=== PATIENT | female | born 1980 | race Caucasian/White ===

== ENCOUNTER 2019-09-29 05:45 | Inpatient (IN) ==
[2019-09-29] MEDS ORDERED: LACTATED RINGER'S 1,000 ML IV PRN (08:05)
[2019-09-29] MEDS ORDERED: PENICILLIN G POTASSIUM 6 MU in DEXTROSE 5% 250 ML IV STA (08:05)
--- NOTE | 2019-09-29 08:09 | Obstetrical Progress Note ---
Date of Service September 29, 2019 Subjective Admit Note 39 F P1011 at 36.2 weeks admitted in active labor. Cervix now 6/80/- 1/vertex/intact/soft/vertex. FHT Cat 1. GBS is positive. Will start antibiotics. Patient plans unmedicated . Results & Data Vital Signs (Past 12 Hours) Vital Signs Temp Pulse Resp BP 09/29/19 07:11 37.1 C 20 09/29/19 07:10 73 107/70 09/29/19 06:06 36.9 C 92 H 20 109/79 09/29/19 06:03 92 H 109/79 09/29/19 06:02 36.9 C 20
[2019-09-29 08:38] LABS: Hematocrit (blood only) 34.5 % (37-47); Mean Corpuscular Hemoglobin 27.8 pg (25-34); Mean Corpuscular Volume 87.1 fL (80-100); Mean Platelet Volume 11.4 fL (7.4-10.4); Platelet Count 161 K/uL (130-400); RDW Coefficient of Variation 15.4 % (11.5-14.5); RDW Standard Deviation 49.4 fL (36.4-46.3); Red Blood Count 3.96 M/uL (4.2-5.4); White Blood Count 10.59 K/uL (4.8-10.8)
[2019-09-29 08:53] LABS: Mean Corpuscular Hgb Conc 31.9 g/dL (32-36)
[2019-09-29] MEDS: PENICILLIN G POTASSIUM 3 MU in DEXTROSE 5% 100 ML IV PRN ×2 (12:35→16:18)
--- NOTE | 2019-09-29 14:59 | Obstetrical Progress Note ---
Date of Service September 29, 2019 Physical Exam Genitourinary: Manual OB Exam: + cervical dilation 6 cm and 7 cm, + cervical effacement 80%, + station -1 and + amniotic fluid clear OB Exam Monitor Tracing: + external FHT monitor used, + external uterine monitor used and + category I AROM with amni-hook clear fluid Results & Data Vital Signs (Past 12 Hours) Vital Signs Temp Pulse Resp BP 09/29/19 11:31 37.0 C 16 09/29/19 10:06 84 16 109/73 09/29/19 07:11 37.1 C 20 09/29/19 07:10 73 107/70 09/29/19 06:06 36.9 C 92 H 20 109/79 09/29/19 06:03 92 H 109/79 09/29/19 06:02 36.9 C 20
[2019-09-29] MEDS: OXYTOCIN 30 UNITS/500 ML BAG IV PRN ×2 (19:09→20:25)
--- NOTE | 2019-09-29 19:22 | Delivery Summary ---
Vaginal Delivery Summary Date of Service September 29, 2019 Vaginal Delivery Summary Delivery Note live female over intact perineum SAURABH with delayed cord clamping and Apgars of 8/9 weight pending. Cord blood obtained and placenta delivered spontaneously and intact. No tears. Final sponge and instrument count are correct. EBL 100 ml. Mom and baby stable.
[2019-09-29] MEDS ORDERED: ONDANSETRON 4 MG TAB PO PRN (19:25)
[2019-09-29] MEDS ORDERED: OXYTOCIN 30 UNITS/500 ML BAG IV PRN (19:25)
[2019-09-29] MEDS ORDERED: ACETAMINOPHEN 325 MG TAB PO PRN (19:25)
[2019-09-29] MEDS ORDERED: SUPERCREAM 0.870% 15 GM JAR EXT PRN (19:25)
[2019-09-29] MEDS ORDERED: DIPHTHERIA/TETANUS/PERTUSSIS 0.5 ML SYR/VIAL IM ONE (19:25)
[2019-09-29] MEDS ORDERED: BENZOCAINE 20% AER SPR 82.5 GM CAN EXT PRN (19:25)
[2019-09-29] MEDS ORDERED: HYDROCORTISONE ACETATE 25 MG SUPP PR PRN (19:25)
[2019-09-29] MEDS ORDERED: IBUPROFEN 600 MG TAB PO ONE (19:30)
[2019-09-29] MEDS: DOCUSATE SODIUM 100 MG CAP PO SCH (20:59)
[2019-09-29] MEDS ORDERED: NON-FORMULARY MEDICATION (Pnv Cmb#95-Ferrous Fumarate-Fa [Prenatal] 1 TAB) PO SCH (21:00)
[2019-09-30] MEDS: IBUPROFEN 600 MG TAB PO PRN ×3 (05:52→20:11)
[2019-09-30 07:11] LABS: Hematocrit (blood only) 29.2 % (37-47); Hemoglobin 9.4 g/dL (12.0-16.0); Mean Corpuscular Hemoglobin 27.8 pg (25-34); Mean Corpuscular Hgb Conc 32.2 g/dL (32-36); Mean Corpuscular Volume 86.4 fL (80-100); Mean Platelet Volume 11.2 fL (7.4-10.4); Platelet Count 168 K/uL (130-400); RDW Coefficient of Variation 15.7 % (11.5-14.5); RDW Standard Deviation 48.7 fL (36.4-46.3); Red Blood Count 3.38 M/uL (4.2-5.4); White Blood Count 12.43 K/uL (4.8-10.8)
--- NOTE | 2019-09-30 08:14 | Obstetrical Progress Note ---
Date of Service September 30, 2019 Subjective Patient is seen and examined. She feels well, no complaints. Ambulating without dizziness Voiding without difficulty Tolerating regular diet with out N&V Bleeding is minimal No fever/ chills/ CP/ SOB/ N&V/ Leg pain Breast feeding without problems Vital Signs Temp Pulse Pulse Resp BP BP Pulse Ox 09/30/19 08:00 36.7 C 77 18 107/72 99 09/30/19 03:35 36.7 C 75 16 104/69 09/29/19 23:25 36.7 C 78 18 109/72 09/29/19 22:10 88 18 104/59 L 09/29/19 21:12 36.8 C 68 18 106/60 09/29/19 20:57 72 104/60 09/29/19 20:42 72 18 103/64 09/29/19 20:28 91 H 18 110/59 L Lab Results 09/29/19 09/30/19 Range/Units 08:21 06:55 WBC 10.59 12.43 H (4.8-10.8) K/uL RBC 3.96 L 3.38 L (4.2-5.4) M/uL Hgb 11.0 L 9.4 L (12.0-16.0) g/dL Hct 34.5 L 29.2 L (37-47) % MCV 87.1 86.4 (80-100) fL MCH 27.8 27.8 (25-34) pg MCHC 31.9 L 32.2 (32-36) g/dL RDW Std Deviation 49.4 H 48.7 H (36.4-46.3) fL RDW Coeff of Tanisha 15.4 H 15.7 H (11.5-14.5) % Plt Count 161 168 (130-400) K/uL MPV 11.4 H 11.2 H (7.4-10.4) fL PE: General: Alert, orientedx3, NAD Abd: soft, NT, fundus firm, below Umbilicus Perineum intact, Lochia rubra minimal Ext; NT, no edema AP: 39 yo s/p , ppd# 1 VSS Afebrile doing well Continue routine care All questions were answered D/C home tomorrow Results & Data Vital Signs (Past 12 Hours) Vital Signs Temp Pulse Pulse Resp BP BP Pulse Ox 09/30/19 08:00 36.7 C 77 18 107/72 99 09/30/19 03:35 36.7 C 75 16 104/69 09/29/19 23:25 36.7 C 78 18 109/72 09/29/19 22:10 88 18 104/59 L 09/29/19 21:12 36.8 C 68 18 106/60 09/29/19 20:57 72 104/60 09/29/19 20:42 72 18 103/64 09/29/19 20:28 91 H 18 110/59 L
[2019-09-30] MEDS: FERROUS SULFATE 325 MG TAB PO SCH (08:28)
[2019-09-30] MEDS: DOCUSATE SODIUM 100 MG CAP PO SCH ×2 (08:29→20:11)
[2019-09-30] MEDS: PRENATAL VITAMIN 1 TAB PO SCH (08:29)
[2019-09-30] MEDS ORDERED: bisacodyL 5 MG TABEC PO SCH (20:00)
[2019-10-01 06:49] LABS: Hematocrit (blood only) 28.7 % (37-47)
[2019-10-01] MEDS: PRENATAL VITAMIN 1 TAB PO SCH (08:01)
[2019-10-01] MEDS: IBUPROFEN 600 MG TAB PO PRN (08:01)
[2019-10-01] MEDS: DOCUSATE SODIUM 100 MG CAP PO SCH (08:01)
[2019-10-01] MEDS: FERROUS SULFATE 325 MG TAB PO SCH (08:02)
[2019-10-01] MEDS ORDERED: bisacodyL 10 MG SUPP PR PRN (09:00)
--- NOTE | 2019-10-01 10:14 | Obstetrical Progress Note ---
Date of Service October 01, 2019 Subjective doing well ambulating well no complaints tolerating diet some problems with nursing due to baby being tongue tied Physical Exam Constitutional: WD/WN, vitals as above comfortable abdomen soft neg edema neg [facility] for discharge Results & Data Vital Signs (Past 12 Hours) Vital Signs Temp Pulse Resp BP Pulse Ox 10/01/19 07:42 36.8 C 79 18 107/72 96 10/01/19 00:00 36.5 C 79 18 110/71 97 Laboratory Results Laboratory Results - last 72 hr 09/29/19 09/30/19 10/01/19 08:21 06:55 06:12 WBC 10.59 12.43 H RBC 3.96 L 3.38 L Hgb 11.0 L 9.4 L 9.0 L Hct 34.5 L 29.2 L 28.7 L MCV 87.1 86.4 MCH 27.8 27.8 MCHC 31.9 L 32.2 RDW Std Deviation 49.4 H 48.7 H RDW Coeff of Tanisha 15.4 H 15.7 H Plt Count 161 168 MPV 11.4 H 11.2 H
== END 2019-10-01 14:42 | disposition home or self-care (01) | DRG 807 ==
LOC: OPB 05:45 → 4S1 05:49 → 4S2 22:50